=== PATIENT | male | born 1980 | race Caucasian/White ===

== ENCOUNTER 2022-04-07 00:46 | Emergency (ER) | payer SELFPAY ==
[~2022-04-07] VITALS: Ht 170.2 cm; Wt 104.3 kg
[2022-04-07 01:05] VITALS: BP 124/83
--- NOTE | 2022-04-07 01:23 | NUR ---
pt have already made his own report to [facility] earlier.
[2022-04-07] MEDS ORDERED: KETOROLAC TROMETHAMINE INJ 60 MG/2 ML VIAL IM ONE (01:30)
[2022-04-07] MEDS ORDERED: KETOROLAC TROMETHAMINE INJ 30 MG/ML VIAL ONE ×2 (01:33)
[2022-04-07] MEDS ORDERED: KETO10TA2 PO (02:41)
--- NOTE | 2022-04-07 02:47 | NUR ---
Patient discharged to home in stable condition. Written and verbal after care instructions given. Patient verbalizes understanding of instruction. Pt ambulatory with a steady gait
== END 2022-04-07 02:51 | disposition home or self-care (01) ==
LOC: ER 00:56
DX: R68.84 Jaw pain (principal); F17.200 Nicotine dependence, unspecified, uncomplicated; Y08.89XA Assault by other specified means, initial encounter; Y93.89 Activity, other specified; Y92.89 Other specified places as the place of occurrence of the external cause; Y99.8 Other external cause status
CPT/HCPCS: 99284; 70450; 96372; 70486; J1885

== ENCOUNTER 2022-04-20 16:27 | Emergency (ER) | payer SELFPAY ==
[~2022-04-20] VITALS: Ht 180.3 cm; Wt 106.6 kg
[~2022-04-20 16:27] MED LIST: KETO10TA2 PO
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
--- NOTE | 2022-04-20 17:15 | NUR ---
SEEN AND EXAMINED BY
--- NOTE | 2022-04-20 17:40 | NUR ---
Patient discharged to home in stable condition.
[2022-04-20 17:47] VITALS: BP 125/80
== END 2022-04-20 17:40 | disposition home or self-care (01) ==
LOC: ER 16:30
DX: H57.11 Ocular pain, right eye (principal); I10 Essential (primary) hypertension; F17.200 Nicotine dependence, unspecified, uncomplicated; Z60.2 Problems related to living alone; Y04.0XXA Assault by unarmed brawl or fight, initial encounter; Y93.89 Activity, other specified; Y92.89 Other specified places as the place of occurrence of the external cause; Y99.8 Other external cause status